=== PATIENT | female | born 1955 | race Caucasian/White ===

== ENCOUNTER 2016-11-15 11:12 | Observation (INO) | payer OTHER ==
[~2016-11-15] VITALS: Ht 170.2 cm; Wt 63.5 kg
[2016-11-15] VITALS (11 sets, daily range): BP systolic 139–180; BP diastolic 57–93
--- NOTE | ~2016-11-15 | CATHLAB ---
[facility] [address] [place] [address] INVASIVE PROCEDURE REPORT Name: FALGUNI PANIAGUA Room #: 205-P ADM IN M.R.#: [id number] Admission: 11/15/16 Attend Phys: Edu De La Rosa MD Discharge: Date of : 55 Date of Service: 11/15/16 1753 Report #: [id number] THIS REPORT FOR: //name// APPROVED REPORT Patient Details Patient Status: Out-Patient Room #: The patient is a 61 year-old female Event Personnel Edu De La Rosa Senior Support Analyst, Susana Rasmussen, Kee Stanford RN RN, Jaun Guerra RN, Lexa Salcedo Scrub Procedures Performed Art Access - R femoral artery* 06538 Initial Mod Sed Same Phys/QHP Gr5y 201353 42860 Mod Sed Same Phys/QHP Ea 246718 Left Heart Cath w/or w/o Coronaries 3311721 LHC BMS Place w/wo Plasty Single LAD 0834569 BMSSINGLE Hemostasis w/ Mynx Indication Abnormal ECG, Dyspnea, Positive stress test Risk Factors Family History, Hypercholesterolemia, Hypertension Procedure Narrative The patient was brought electively to the Cardiac Catheterization Laboratory and was prepped and draped in a sterile manner. The Right Groin^ was infiltrated with 1% Lidocaine subcutaneous anesthesia. A PINNACLE 4FR Sheath #[id number] sheath was inserted into the RFA^. Coronary angiography was performed using coronary diagnostic catheters. The right coronary system was accessed and visualized with a JR 4 catheter. The left coronary system was accessed and visualized with a JL 4 catheter. The left ventricle was accessed and visualized with a Pigtail catheter. Left ventricular/Aortic Valve gradient assessed via catheter pullback. Left ventriculogram was performed in 30 degree projection. Pre-demployment femoral angiogram was performed . The patient tolerated the procedure well and there were no complications associated with the procedure. There was no hematoma. Intraoperative Conscious Sedation Sedation start time: 12:49 Case end Time: 13:30 [address] [place] [address] INVASIVE PROCEDURE REPORT Name: FALGUNI PANIAGUA Room #: 205-P [facility] IN ..#: [id number] Admission: 11/15/16 Attend Phys: Edu De La Rosa MD Discharge: Date of : 55 Date of Service: 11/15/16 1753 Report #: [id number] Fentanyl 50.0 mcg Versed 1.0 mg Fluoro Time: 8.07 minutes Dose: DAP 4391.70 cGycm2 598 mGy Contrast Type and Amount: Omnipaque 205 ml Coronary Angiography The patient's coronary anatomy is right dominant. Diagnostic Cath Left Main Large-caliber vessel, no flow limiting lesions. LAD Moderate to large size caliber vessel with a severe, discrete stenosis in the proximal segment, greater than 90%. Mild to moderate disease in the mid segment. Circumflex Patent with mild plaquing in the proximal segment. OM1 Small-caliber vessel with mild disease proximally, 30%. OM2 Moderate size caliber vessel with mild disease proximally, 20%. Right Coronary Dominant vessel with mild plaquing in the mid segment, 30%. R PDA No flow-limiting lesions. RPLV Small-caliber vessel, no flow limiting lesions. Left Ventriculography The left ventricle is normal in size with normal contractility. The left ventricular ejection fraction is estimated to be 55-60%. Hemodynamics The aortic pressure is 175/89 mmHg with a mean of 128 mmHg. The left ventricular pressure is 186/3 mmHg with a mean of mmHg. The left ventricular end diastolic pressure is 21 mmHg. PCI Technique Lesion Anticoagulation was achieved with Angiomax. Percutaneous coronary intervention was performed on the proximal left anterior descending artery segment. A LAUNCHER 6FR JL4 #[id number] Guide Catheter was used to engage the ostium. A Luge Wire .014 x 182CM #[id number] Interventional Guidewire was used to cross the lesion. BALLOON DILATION A Balloon catheter [employer]ek RX 3.0 x 9 #[id number] was inserted and inflated up to 7.00atm for 12seconds. [facility] [address] [place] [address] INVASIVE PROCEDURE REPORT Name: FALGUNI PANIAGUA Room #: 205-P ADM IN M.R.#: [id number] Admission: 11/15/16 Attend Phys: Edu De La Rosa MD Discharge: Date of : 55 Date of Service: 11/15/16 1753 Report #: [id number] STENT DEPLOYMENT A bare metal stent INTEGRITY RX 3.0 X 18 #[id number] was inserted and inflated up to 14.00atm for 20seconds. POST STENT DEPLOYMENT BALLOON DILATION A Balloon catheter TREK NC RX 3.25 X 12 #[id number] was inserted and inflated up to 18.00atm for 17seconds. Final angiography reveals 5 % stenosis with LIUDMILA 3 flow. COMMENTS 3.0 mm bare stent inserted, postdilated with 3.25 mm noncompliant balloon up to 18 johan. Conclusion 1. Successful insertion of a bare metal stent into the proximal LAD stenosis. Recommend dual antiplatelet therapy for approximately 5-6 weeks and then aspirin once a day thereafter. 2. Mild to moderate disease, as described above. 3. Normal LV systolic function. 4. Recommend medical therapy. Recommendations Medical Therapy <ELECTRONICALLY SIGNED> By: Edu De La Rosa MD 11/15/161752 52 52 Edu De La Rosa MD /INF
--- NOTE | ~2016-11-15 | EKG ---
[address] [address] ELECTROCARDIOGRAM REPORT Name: FALGUNI PANIAGUA Room #: 205-[facility]..#: [id number] Admission: 11/15/16 Attend Phys: Edu De La Rosa MD Discharge: Date of : 55 Report #: [id number] THIS REPORT FOR: //name// [facility] Test Date: 2016-11-16 Test Time: 05:42:55 Pat Name: FALGUNI PANIAGUA Department: Room: 205 Gender: F Strip Feeder: BRENDA : 1955 Requested By: Edu De La Rosa Order Number: [id number] MD: Rom Cohen Measurements Intervals [place] Rate: 68 P: 55 CO: 144 QRS: 41 QRSD: 90 T: 59 QT: 418 QTc: 445 Interpretive Statements Sinus rhythm No significant abnormality Baseline wander in lead(s) V3 Compared to ECG 11/15/2016 11:30:03 No significant change was found Electronically Signed On 11-16-2016 7:33:19 CDT by Rom Cohen [email or web address] <ELECTRONICALLY SIGNED> By: Rom Cohen MD, [facility] 11/16/16 0733 0542 0542 Rom Cohen MD, [facility] /EPI
--- NOTE | ~2016-11-15 | D ---
[facility] [place] [address] DISCHARGE SUMMARY Name: FALGUNI PANIAGUA Room #: 205-P [facility] MCharles#: [id number] Admission: 11/15/16 Attend Phys: Edu De La Rosa MD Discharge: Date of : 55 Report #: [id number] THIS REPORT FOR: //name// CC: Edu [facility] DATE OF SERVICE: 11/16/2016 FINAL DIAGNOSES: 1. Coronary artery disease, status post percutaneous coronary intervention. 2. Hypertension. 3. Hypercholesterolemia. 4. Sinusitis. 5. Asthma. HOSPITAL COURSE: Please see the original H and P for full details. The patient presented with an abnormal preop ECG and dyspnea on exertion. During the stress test, she developed significant ST depressions in the inferolateral leads. The echocardiographic images revealed hypokinesis in the LAD territory. She did undergo a cardiac catheterization, please see the cath report for full details. There was a severe stenosis in the proximal LAD, undergoing angioplasty with placement of a bare metal stent. She will need dual antiplatelet therapy for approximately 6 weeks and then will be able to proceed with her sinus surgery. She was given instructions regarding importance of compliance with dual antiplatelet therapy. FINAL DISPOSITION: Brilinta 90 mg twice a day, Lipitor 40 mg daily, losartan 50 mg daily, aspirin 81 mg daily. She will continue with amlodipine 5 mg daily, albuterol inhaler, Entocort, Symbicort, and Singulair. She was given instructions for followup in the office. By: [id number] Edu De La Rosa MD /irma
--- NOTE | ~2016-11-15 | EKG ---
[address] [address] ELECTROCARDIOGRAM REPORT Name: FALGUNI PANIAGUA [id number] Admission: 11/15/16 Attend Phys: Edu De La Rosa MD Discharge: Date of : 55 Report #: [id number] THIS REPORT FOR: //name// [facility] Test Date: 2016-11-15 Test Time: 11:30:03 Pat Name: FALGUNI PANIAGUA Department: Room: Gender: F Lab Aid: Karen MERIDA : 1955 Requested By: Edu De La Rosa Order Number: [id number] MD: Francisco Maier Measurements Intervals [place] Rate: 95 P: 77 [place]: 138 QRS: 30 QRSD: 88 T: 42 QT: 348 QTc: 438 Interpretive Statements Sinus rhythm No previous ECG available for comparison Electronically Signed On 11-15-2016 11:40:40 CDT by Francisco Maier [email or web address] <ELECTRONICALLY SIGNED> By: Francisco Maier MD 11/15/16 1140 1130 1130 Francisco Maier MD /PARDEEP
--- NOTE | ~2016-11-15 | EKG ---
[address] [address] ELECTROCARDIOGRAM REPORT Name: FALGUNI PANIAGUA Room #: 205-[facility]..#: [id number] Admission: 11/15/16 Attend Phys: Edu De La Rosa MD Discharge: Date of : 55 Report #: [id number] THIS REPORT FOR: //name// [facility] Test Date: 2016-11-15 Test Time: 16:31:31 Pat Name: FALGUNI PANIAGUA Department: Room: 205 Gender: F Engineering Recruiter: Sarah ROBISON : 1955 Requested By: Edu De La Rosa Order Number: [id number] MD: Rom Cohen Measurements Intervals [place] Rate: 63 P: 42 CO: 148 QRS: 24 QRSD: 88 T: 50 QT: 410 QTc: 420 Interpretive Statements Sinus rhythm Normal tracing Compared to ECG 11/15/2016 11:30:03 No significant changes Electronically Signed On 11-16-2016 7:21:42 CDT by Rom Cohen [email or web address] <ELECTRONICALLY SIGNED> By: Rom Cohen MD, [facility] 11/16/16 0721 1631 163 Rom Cohen MD, [facility] /EPI
[2016-11-15] MEDS ORDERED: NORVASC5 MG PO (11:51)
[2016-11-15] MEDS ORDERED: VENTOLIN HFA 1818 GM INH (11:53)
[2016-11-15] MEDS ORDERED: ENTOCORT EC 3 MG3 MG INH (11:54)
[2016-11-15] MEDS ORDERED: SYMBICORT160 MCG/4. INH (11:55)
[2016-11-15] MEDS ORDERED: ASPIR 8181 MG PO (11:56)
[2016-11-15] MEDS ORDERED: SINGULAIR 10 MG10 M1 PO (11:56)
[2016-11-15 11:59] LABS: HEMATOCRIT 41.6 % (37.0-47.0); HEMOGLOBIN 14.2 gm/dL (12.0-15.0); MCH 29.5 pg (26.0-34.0); MCHC 34.2 g/dL (28.0-37.0); MCV 86.4 fL (80.0-100.0); RBC 4.82 mil/uL (4.20-5.00); RDW 12.7 % (10.5-14.5); WBC 6.1 thou/uL (4.0-11.0)
[2016-11-15 12:05] LABS: CALCIUM 9.5 mg/dL (8.5-10.1); CREATININE 0.8 mg/dL (0.6-1.0); POTASSIUM 3.9 mmol/L (3.5-5.1)
[2016-11-16 04:03] VITALS: BP 148/85
[2016-11-16 04:23] LABS: HEMATOCRIT 38.9 % (37.0-47.0); HEMOGLOBIN 13.1 gm/dL (12.0-15.0); MCH 29.4 pg (26.0-34.0); MCHC 33.8 g/dL (28.0-37.0); MCV 86.8 fL (80.0-100.0); RBC 4.48 mil/uL (4.20-5.00); RDW 12.8 % (10.5-14.5)
[2016-11-16 04:41] LABS: CALCIUM 8.9 mg/dL (8.5-10.1); CREATININE 0.6 mg/dL (0.6-1.0); POTASSIUM 3.6 mmol/L (3.5-5.1); TROPONIN-I 0.07 ng/mL (<0.04-0.07)
[2016-11-16] MEDS ORDERED: BRILINTA90 MG PO (08:30)
[2016-11-16] MEDS ORDERED: ATORVASTATIN CA40 MG PO (08:33)
[2016-11-16] MEDS ORDERED: COZAAR 50 MG TA50 M1 PO (08:34)
[2016-11-16 10:18] VITALS: BP 148/85
== END 2016-11-16 11:32 | disposition home or self-care (01) ==
LOC: CATH 11:12 → 2N 14:11
PROVIDERS: Internal Medicine Cardiovascular Disease
DX: I25.118 Atherosclerotic heart disease of native coronary artery with other forms of angina pectoris (principal); I10 Essential (primary) hypertension; J45.909 Unspecified asthma, uncomplicated

== ENCOUNTER → 2019-03-07 | Outpatient (CLI) | payer OTHER ==
[~2019-03-07] MED LIST: ASPIR 8181 MG PO; ATORVASTATIN CA40 MG PO; BRILINTA90 MG PO; COZAAR 50 MG TA50 M1 PO; ENTOCORT EC 3 MG3 MG INH; NORVASC5 MG PO; SINGULAIR 10 MG10 M1 PO; SYMBICORT160 MCG/4. INH; VENTOLIN HFA 1818 GM INH
== END ==
LOC: SJCVCIMAG 10:07
DX: I25.10 Atherosclerotic heart disease of native coronary artery without angina pectoris (principal); Z82.49 Family history of ischemic heart disease and other diseases of the circulatory system; Z95.5 Presence of coronary angioplasty implant and graft

== ENCOUNTER → 2019-09-26 | Outpatient (CLI) | payer BC | LOC: SJCVCIMAG 09:08 | PROVIDERS: ATTEND Internal Medicine Cardiovascular Disease | DX: I07.1 Rheumatic tricuspid insufficiency (principal); I25.10 Atherosclerotic heart disease of native coronary artery without angina pectoris; I10 Essential (primary) hypertension; E78.5 Hyperlipidemia, unspecified; Z98.61 Coronary angioplasty status ==